=== PATIENT | male | born 1950 | race Caucasian/White ===

== ENCOUNTER 2021-01-30 16:02 | Emergency (ER) | payer MEDICARE, OTHER ==
[2021-01-30 17:43] LABS: BILIRUBIN NEGATIVE (NEGATIVE); BLOOD NEGATIVE Ery/uL (NEGATIVE); CLARITY CLEAR (CLEAR); COLOR YELLOW (YELLOW); GLUCOSE (U) NORMAL (NORMAL); LEUKOCYTES NEGATIVE Leu/uL (NEGATIVE); NITRITE NEGATIVE (NEGATIVE); PROTEIN NEGATIVE (NEGATIVE); SPECIFIC GRAVITY 1.015 (1.001-1.030)
== END 2021-01-30 18:42 | disposition left against medical advice (07) ==
LOC: FER 16:02
PROVIDERS: Emergency Medicine
DX: Z53.21 Procedure and treatment not carried out due to patient leaving prior to being seen by health care provider (principal)
CPT/HCPCS: 81003